=== PATIENT | female | born 1990 | race African-American/Black ===

== ENCOUNTER 2021-06-24 11:24 | Outpatient (REF) | payer BC, SELFPAY ==
--- NOTE | 2021-06-24 10:45 | PAPFT_PTH ---
PATIENT: Kianna Zuniga LOC: [facility] U#:[id number] AGE/SX: 31/F ROOM: RE06/24/[address]: Giuseppe Cody NP : 1990 BED: DIS: 06/24/2021 SPEC #: [id number] RECD: 06/24/21 17:51 STATUS: LM RECyndi #: [id number] NIA: 06/24/21 10:[address]: Giuseppe oCdy DEPT: [facility] Cytology RECD BY: Stacey Yu Tissues: 1 - CX/ENDOCX FOR PAP SMEARS Procedures: PAP THIN PREP/UVM Screening HPV DNA PROBE Comments: [id number]
[2021-06-24 19:05] LABS: HCT 37.3 % (36.0-46.0); HGB 12.4 g/dL (11.2-15.7); MCH 26.4 pg (27.0-33.0); MCHC 33.2 % (32.0-36.0); MCV 79.5 fL (80-95); Platelet Count 281 10^3/uL (130-400); RBC 4.69 10^6/uL (3.93-5.22); RDW 12.8 % (11.7-14.6); RDW-SD 36.2 fL; WBC 6.47 10^3/uL (4.4-10.8)
[2021-06-24 19:26] LABS: ALT 34 U/L (14-59); AST 15 U/L (15-37); Albumin 3.8 g/dL (3.4-5.0); Alkaline Phosphatase 60 U/L (46-116); Anion Gap 8.8 mmol/L (3-11); BUN 14 mg/dL (7-18); Bilirubin, Total 0.3 mg/dL (0.2-1.0); CO2 27.2 mmol/L (21.0-32.0); CREATININE 1.1 mg/dL (0.55-1.02); Calcium 9.4 mg/dL (8.5-10.1); Calculated LDL 101 mg/dL (<100); Chloride 103 mmol/L (98-107); Cholesterol 175 mg/dL (<200); Estimated GFR 57.93 (mL/min/1.73m2); Glucose 77 mg/dL (74-106); HDL Cholesterol 56 mg/dL (40-60); Potassium 4.3 mmol/L (3.5-5.1); Sodium 139 mmol/L (136-145); TSH 1.59 uIU/mL (0.36-3.74); Total Protein 7.7 g/dL (6.4-8.2); Triglyceride 91 mg/dL (<150)
[2021-06-24 21:25] LABS: Hemoglobin A1C 5.2 % (<5.7)
== END 2021-06-24 11:25 | disposition home or self-care (01) ==
LOC: LBN 11:24
PROVIDERS: PCP Nurse Practitioner Family; Visit Provider Nurse Practitioner Family
DX: Z13.220 Encounter for screening for lipoid disorders (principal); Z13.1 Encounter for screening for diabetes mellitus; R42 Dizziness and giddiness; Z12.4 Encounter for screening for malignant neoplasm of cervix; Z11.51 Encounter for screening for human papillomavirus (HPV)
CPT/HCPCS: 80053; 80061; 85027; 88142; 83036; 84443; 87624

== ENCOUNTER 2021-11-02 01:43 | Outpatient (CLI) | payer BC, SELFPAY ==
[2021-11-02 14:59] LABS: Glucose,1 Hr (Glucola) 135 mg/dL (80-140)
[2021-11-02 15:05] LABS: Kit/Specimen SENT
[2021-11-02 15:07] LABS: Abs Immature Grans 0.02 10^3/uL (0.0-0.06); Absolute Basophil Count 0.01 10^3/uL (0.0-0.2); Absolute Eosinophil Count 0.21 10^3/uL (0.0-0.7); Absolute Lymphocyte Count 1.26 10^3/uL (1.2-3.4); Absolute Monocyte Count 0.54 10^3/uL (0.1-0.8); Absolute Neutrophil Count 4.76 10^3/uL (1.2-6.7); Basophils % 0.1; Eosinophils % 3.1; HGB 11.9 g/dL (11.2-15.7); Immature Grans % 0.3; Lymphocytes % 18.5; MCH 27.3 pg (27.0-33.0); MCV 80.3 fL (80-95); MPV 10.8 fL (8.0-11.0); Monocytes % 7.9; Neutrophils % 70.1; Nucleated RBC 0 %; Platelet Count 229 10^3/uL (130-400); RBC 4.36 10^6/uL (3.93-5.22); RDW 12.7 % (11.7-14.6); RDW-SD 36.6 fL
[2021-11-02 17:04] LABS: *AMPHETAMINES SCREEN URINE Negative (Negative); *BARBITURATES SCREEN URINE Negative (Negative); *BENZODIAZEPINES SCREEN URINE Negative (Negative); Cannabinoids THC Negative (Negative); Cocaine Screen,Urine Negative (Negative); METHADONE URINE SCREEN Negative (Negative); OPIATES URINE SCREEN Negative (Negative)
[2021-11-02 17:05] LABS: Tricyclic Antidepressants Negative (Negative)
[2021-11-04 09:36] LABS: Hepatitis B Surface Ag Negative (Negative)
[2021-11-04 10:08] LABS: HIV-1/2 Ag & Ab Screen Negative (Negative)
[2021-11-04 10:25] LABS: Hepatitis C Ab w Rflx HCV PCR Negative (Negative)
[2021-11-04 11:34] LABS: Varicella IgG Antibody Positive (See Note)
[2021-11-04 11:41] LABS: Rubella IgG Ab (UVM) Positive (See Note)
[2021-11-04 15:26] LABS: Chlamydia Result Negative (Negative); GC Result Negative (Negative)
[2021-11-06 14:55] LABS: Syphilis IgG w/Reflex Nonreactive (Nonreactive)
[2021-11-08 17:57] LABS: Result Summary NEGATIVE; Specimen WB Whole Blood
[2021-11-10 00:49] LABS: Specimen WB Whole Blood
[2021-11-10 10:31] LABS: Buprenorphine Negative ng/mL (Cutoff: 5.0); Norbuprenorphine Negative ng/mL (Cutoff: 2.5)
== END 2021-11-02 01:44 | disposition home or self-care (01) ==
PROVIDERS: PCP Nurse Practitioner Family; Visit Provider Advanced Practice Midwife
DX: Z34.91 Encounter for supervision of normal pregnancy, unspecified, first trimester (principal)
CPT/HCPCS: 36415; 80307; 81329; 82950; 86787; 86803; 86850; 86900; 86901; 87340; 87389; 87491; 87591; 81220; 85025; 86762; 86780; 87086

== ENCOUNTER 2021-11-10 02:26 | Outpatient (CLI) | payer BC, SELFPAY ==
[2021-11-10 10:17] LABS: Glucose 1 Hour 136 mg/dL
[2021-11-10 12:19] LABS: Glucose 3 Hour 90 mg/dL
== END 2021-11-10 02:27 | disposition home or self-care (01) ==
LOC: LBO 02:26
PROVIDERS: PCP Nurse Practitioner Family; Visit Provider Advanced Practice Midwife
DX: R73.09 Other abnormal glucose (principal)
CPT/HCPCS: 36415; 82951

== ENCOUNTER 2022-02-10 01:23 | Outpatient (CLI) | payer BC, SELFPAY ==
[2022-02-10 10:04] LABS: HCT 31.9 % (36.0-46.0); HGB 11.4 g/dL (11.2-15.7); MCH 28.6 pg (27.0-33.0); MCHC 35.7 % (32.0-36.0); MCV 80 fL (80-95); MPV 9.9 fL (8.0-11.0); Platelet Count 183 10^3/uL (130-400); RBC 3.99 10^6/uL (3.93-5.22); RDW 12.8 % (11.7-14.6); RDW-SD 36.6 fL; WBC 7.69 10^3/uL (4.4-10.8)
[2022-02-10 10:19] LABS: Glucose 1 Hour 115 mg/dL
[2022-02-10 12:28] LABS: Glucose 3 Hour 99 mg/dL
== END 2022-02-10 01:24 | disposition home or self-care (01) ==
PROVIDERS: Advanced Practice Midwife; PCP Nurse Practitioner Family; Visit Provider Advanced Practice Midwife
DX: Z34.93 Encounter for supervision of normal pregnancy, unspecified, third trimester (principal); Z3A.28 28 weeks gestation of pregnancy
CPT/HCPCS: 36415; 85027; 82951

== ENCOUNTER 2022-04-07 15:38 | Outpatient (REF) | payer BC, SELFPAY | END 2022-04-07 15:39 | disposition home or self-care (01) | LOC: LBN 15:38 | PROVIDERS: PCP Nurse Practitioner Family; Visit Provider Advanced Practice Midwife | DX: Z34.93 Encounter for supervision of normal pregnancy, unspecified, third trimester (principal); Z3A.36 36 weeks gestation of pregnancy; Z36.85 Encounter for antenatal screening for Streptococcus B | CPT/HCPCS: 87081 ==

== ENCOUNTER 2022-05-10 20:40 | Inpatient (IN) | payer BC, SELFPAY ==
[2022-05-10] VITALS (13 sets, daily range): BP systolic 140–170; BP diastolic 80–96; PULSE 72–106
--- NOTE | 2022-05-10 22:17 | HPE_ITS ---
Date of service: 05/10/22 Time of Service: 22:17 Assessment and Plan Assessment and plan (1) Uterine contractions: Status: Acute Assessment and plan: A: 32 yo G1 @ 41 wks Spontaneous onset of labor GBS+, no PCN allergy Category 1 tracing, intact membranes Increased risk for SD d/t BMI, postdates and primiparous status Increased risk for PPH d/t gHTN, new onset P: Admit to BC, T&S, CBC, CMP, urine prot/creat Dr. Uribe notified of pt status and severe range BP Initiate IV access, begin PCN prophylaxis IVP labetalol 10 mg now, recheck BP per severe range BP procotol (2) 41 weeks gestation of : Status: Acute (3) Group B Streptococcus carrier state affecting : Status: Acute Assessment and plan: Begin GBS prophylaxis with PCN protocol (4) Gestational hypertension affecting first : Status: Acute Assessment and plan: Severe range pressures upon admission x3 Dr. Uribe notified (inhouse) CMP, urine prot/creat ratio ordered Labetalol 10 mg IVP now, follow severe range pressure procedures Pt denies PATE, scotomata or RUQ pain OB-HPI Labor/Delivery History of Present Illness Reason for Visit: Term Labor Chief Complaint: Uterine Contractions (contractions have been going all day, became regular & painful this evening and spotting noted. No ROM, nauseated but no vomiting.). THIEN Calculator Estimated Delivery Date Method Current WG Current Estimate 05/03/22 LMP (Certain) 41w 0d Other Estimates 05/03/22 Ultrasound #1 41w 0d History of Present Expected Delivery Route/Plan - CNM FOB - Shaun Brock (has 13 yo from prev. marriage) BG Marylin GBS POSITIVE: PCN prophylaxis in labor Specific Issues/Plan 1. Patient and are COVID vaccinated 2. Increased risk for pre-eclampsia, will begin low dose ASA therapy 2a. At 18 wk appt: pt has not started ASA, risks x3 discussed, pt encouraged to consider beginning 3. Panorama, SMA/CF drawn at initial OB. CF & SMA negative; cfDNA low prob x5 female 4. 1 hour glucola at initial OB for BMI 31, result 135; 3 hr GTT nml: [id number]. 4a. Plan 3 hr GTT at 28 wks: all 4 levels are nml 6/10/22 5. Referral to [facility] audiology due to persistent left ear tinnitis 5a. Did not go, prefers to go after the baby is born 6. Right hip pain, doing yoga, offered PT but declines at this time - 04/07- symptoms improved. 7. Pt knows she has hgb, sickle cell trait carrier. 8. Declines second drug screen due to cost - declines any drug use. Assessment: History Reviewed & Current Review of Systems All systems reviewed & are unremarkable except as noted in HPI and below Constitutional Constitutional: Reports as per HPI and Reports poor appetite PFSH All Active Problems (Updated 05/10/22 @ 22:33 by Kalina Sears) Gestational hypertension affecting first (Acute) Group B Streptococcus carrier state affecting (Acute) 41 weeks gestation of (Acute) Uterine contractions (Acute) (sickle cell trait) (Acute) Clicking tinnitus of left ear (Acute) (Acute) Medical History (Updated 05/10/22 @ 22:33 by Kalina Sears) Anemia Dizzy spells Elevated glucose level Family History Mother Hypertension Breast cancer diagnosed around age 57, had radiation and lumpectomy, in recurrence Father No problems noted. Sister No problems noted. Brother No problems noted. Maternal Grandmother No problems noted. Paternal Grandmother Hypertension Social History Smoking/Tobacco Use Status: Never Second Hand Exposure: Yes Smoking risk assessment performed?: Yes Alcohol Intake: current Alcohol Intake frequency: a few times a month Alcohol type: wine Drug use: Never Substance use type: does not use Caregiver/Support person: No Household members: significant other Housing: house Pets and animals: Yes Pets and animals: dog(s) Sexually active: Yes Do you think of yourself as: straight/heterosexual Current gender identity: female What is your relationship status?: living with partner How often do you talk on the phone with friends or family?: three or more times per week How often do you get together with friends or relatives?: once per week Do you belong to any clubs or organized social groups?: no Panel score (0-1 are the most socially isolated patients): 2 What type of physical activity do you participate in: yoga Duration: < 15 minutes/day Frequency: 1-2 times per week Macrina/Moravian: No preference Seatbelt use: always Drive intox or ride w/intox laundry route driver: No History History 1 Para 0 Hx # Term Pregnancies 0 Multiple births 0 Hx # Pregnancies 0 Ectopic pregnancies 0 AB induced 0 Hx Number of Living Children 0 AB spontaneous 0 Meds Allergies and Home Medications Allergies Allergy/AdvReac Type Severity Reaction Status Date / Time latex AdvReac Intermediate skin Verified 05/05/22 12:18 irritation Home Medications Medication Instructions Recorded Confirmed Type prenat.vits,luke,fiw-lybv-xseru 1 tab PO DAILY 09/23/21 05/05/22 History flu vacc [id number] 6mos up(PF) 60 0.5 ml IM ONCE #0.5 mL 11/02/21 Clinic mcg(15 mcgx4)/0.5 mL IM syringe aspirin 81 mg tablet,delayed 81 mg PO DAILY 12/30/21 05/05/22 History release (Adult Low Dose Aspirin) diphenhydramine HCl 25 mg capsule 25 mg PO QHS PRN 03/24/22 05/05/22 History (Benadryl) Exam Physical Exam Vital signs: Pulse BP 86 168/92 H 05/10/22 22:02 05/10/22 22:02 Vital Signs Reviewed: Yes Narrative: Hypertension noted Constitutional Constitutional: moderate distress, average body habitus and cooperative Detailed Labor and Delivery Exam Dilation: 1 Effacement (%): 100 station: -2 Cervix position: anterior Consistency: soft PERDOMO Score(Cervical Ripeness Score): 9 Amniotic Membrane Status: Intact (large forebag palpable) Fetus A Heart Rate Baseline: 145 Monitor Accelerations: 15 X 15 Monitor Decelerations: None Variability: Moderate (6-25 BPM) Categories: Category I Est. Weight: 7 lb 7.931 oz Est. Weight: 3400 gms HEENT Exam HEENT Exam: Normal Neck Exam Neck Exam: Normal Chest/Brest/Axilla Exam Chest Exam: Normal Breast Exam Breast Exam: Not Done Respiratory Exam Respiratory Exam: Normal Cardiovascular Exam Cardiovascular Exam: Normal Abdominal Exam Abdominal Exam: Normal (Gravid, S=D) Rectal Exam Rectal Exam: Normal Exam Exam: Normal Extremities Exam Extremities Exam: Normal Back/Spine/Pelvis Exam Back Exam: Normal Pelvis Adequate: Yes Skin Exam Skin Exam: Normal Neurological Exam Neurological Exam: Normal Psychiatric Exam Psychiatric Exam: Normal Results Results Group Beta Strep: Positive Blood Type: O+ Rubella Status: Immune Varicella Immunity: Immune Risk Assessment Risk for Shoulder Dystocia Historical/Initial OB: POSITIVE FOR: Pre- BMI>30; NEGATIVE FOR: Pelvic Abnormality, Previous Shoulder Dystocia or Previous Macrosomia 40 Weeks: POSTIVE FOR: Post Dates; NEGATIVE FOR: EFW> 4500 gms or Maternal Weight Gain >40lb Increased Risk?: Yes Date/Initial: 11/02/21: LEROY Delivery Plan @ 36wks: spont labor, Delivery Plan @ 40 wks: Spont labor, Risk for Pre-Eclampsia Daily Dose ASA Indicated: Yes Date Initiated/Initials: indicated 11/02/21: Leroy Yes, if one or more: NEGATIVE FOR: Hx Pre-E/Gest HTN, Chronic HTN, Multiple Gestation, Pre-gestational DM, Renal Disease, Systemic Lupus or APA Syndrome Yes, if 2 or more: POSITIVE FOR: Nulliparity, BMI>30 and ethinicty; NEGATIVE FOR: Age>= 35 yrs, >10yr btwn pregnancies, Mother/Sister w/ Pre-E or Previous IUGR Risk for Post- Hemorrhage Initial: NEGATIVE FOR: Multiple Gestation, Previous PPH, Known Clotting Deficiency, Grand Multiparity or Anticoagulation At Risk?: No Counseled re: Active Management: Yes Risks Reviewed Risks Reviewed Upon Admission: Yes
[2022-05-10 22:26] LABS: Source Nasal/Nares
[2022-05-10 22:27] LABS: HCT 36.1 % (36.0-46.0); HGB 12.2 g/dL (11.2-15.7); MCH 27.6 pg (27.0-33.0); MCHC 33.8 % (32.0-36.0); MCV 82 fL (80-95); MPV 10.5 fL (8.0-11.0); Platelet Count 209 10^3/uL (130-400); RBC 4.42 10^6/uL (3.93-5.22); RDW 12.8 % (11.7-14.6); RDW-SD 38.2 fL; WBC 8.51 10^3/uL (4.4-10.8)
[2022-05-10] MEDS: Penicillin G POT. 5,000,000 UNITS in Normal Saline 100 ML 200 UNITS IVPB (22:41)
[2022-05-10 22:42] LABS: ALT 25 U/L (14-59); AST 18 U/L (15-37); Albumin 2.6 g/dL (3.4-5.0); Alkaline Phosphatase 253 U/L (46-116); Anion Gap 8.4 mmol/L (3-11); BUN 9 mg/dL (7-18); Bilirubin, Total 0.3 mg/dL (0.2-1.0); CO2 24.6 mmol/L (21.0-32.0); CREATININE 0.9 mg/dL (0.55-1.02); Calcium 8.9 mg/dL (8.5-10.1); Chloride 103 mmol/L (98-107); Estimated GFR 87.11 (mL/min/1.73m2); Glucose 82 mg/dL (74-106); LDH 180 U/L (81-234); Potassium 3.9 mmol/L (3.5-5.1); Sodium 136 mmol/L (136-145); Total Protein 7.2 g/dL (6.4-8.2); Uric Acid 6.7 mg/dL (2.6-6.0)
[2022-05-10] MEDS: Labetalol 100 MG/20 ML VIAL 10 MG IVP ×2 (22:42→23:12)
[2022-05-10 23:09] LABS: COVID-19 PCR Negative (Negative)
[2022-05-11] VITALS (125 sets, daily range): BP systolic 93–179; BP diastolic 53–110; PULSE 0–103; RESP 12–98; TEMP 36.5–36.9; O2SAT 92–100; BMI 33.0
[2022-05-11] MEDS: Labetalol 100 MG/20 ML VIAL 20 MG IVP ×2 (00:04→00:52)
--- NOTE | 2022-05-11 00:05 | W.PM.OBNL1 ---
Date of service: 05/11/22 Time of Service: 00:05 Informed Consent Informed Consent: Regional Anesthesia and Risk,Benefits,Alternatives Discussed Pelvic Exam Dilation: 2 Effacement (%): 100 station: -1 Cervix Position: mid Contractions Monitor Mode: External Contraction Frequency(min): q2-4 Intensity: Mild/Moderate Fetus A Monitor: External (US) Heart Rate Baseline: 140 Variability: Moderate (6-25 BPM) Categories: Category I Accelerations: Present Decelerations: None Amniotic Membrane Status: Intact Assessment and Plan Assessment and plan (1) Pre-eclampsia affecting childbirth: Status: Acute Assessment and plan: A: Uric Acid elevated at 6.7, serum creatinine elevated at 0.9 urine prot/creat ratio pending LFT's, LDH and plts WNL BP responding to serial doses of IVP labetalol Labor progressing to 2/100% vtx -2, BBOW P: Pt 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 Uribe inhouse and aware of BP status Will repeat Labetalol at 20 mg IVP Consider AROM when pt more comfortable Anticipate Objective Abnormal lab results 05/10/22 Range/Units 22:15 Uric Acid 6.7 H (2.6-6.0) mg/dL Alkaline Phosphatase 253 H (46-116) U/L Albumin 2.6 L (3.4-5.0) g/dL Pulse BP 86 154/92 H 05/11/22 00:01 05/11/22 00:01 Laboratory Results WBC 8.51 10^3/uL (4.4-10.8) 05/10/22 22:15 RBC 4.42 10^6/uL (3.93-5.22) 05/10/22 22:15 Hgb 12.2 g/dL (11.2-15.7) 05/10/22 22:15 Hct 36.1 % (36.0-46.0) 05/10/22 22:15 MCV 82 fL (80-95) 05/10/22 22:15 MCH 27.6 pg (27.0-33.0) 05/10/22 22:15 MCHC 33.8 % (32.0-36.0) 05/10/22 22:15 RDW 12.8 % (11.7-14.6) 05/10/22 22:15 Plt Count 209 10^3/uL (130-400) 05/10/22 22:15 MPV 10.5 fL (8.0-11.0) 05/10/22 22:15 Sodium 136 mmol/L (136-145) 05/10/22 22:15 Potassium 3.9 mmol/L (3.5-5.1) 05/10/22 22:15 Chloride 103 mmol/L (98-107) 05/10/22 22:15 Carbon Dioxide 24.6 mmol/L (21.0-32.0) 05/10/22 22:15 Anion Gap 8.4 mmol/L (3-11) 05/10/22 22:15 BUN 9 mg/dL (7-18) 05/10/22 22:15 Creatinine 0.9 mg/dL (0.55-1.02) 05/10/22 22:15 Est GFR (CKD-EPI 2020) 87.11 (mL/min/1.73m2) 05/10/22 22:15 Glucose 82 mg/dL (74-106) 05/10/22 22:15 Uric Acid 6.7 mg/dL (2.6-6.0) H 05/10/22 22:15 Calcium 8.9 mg/dL (8.5-10.1) 05/10/22 22:15 Total Bilirubin 0.3 mg/dL (0.2-1.0) 05/10/22 22:15 AST 18 U/L (15-37) 05/10/22 22:15 ALT 25 U/L (14-59) 05/10/22 22:15 Alkaline Phosphatase 253 U/L (46-116) H 05/10/22 22:15 Lactate Dehydrogenase 180 U/L (81-234) 05/10/22 22:15 Total Protein 7.2 g/dL (6.4-8.2) 05/10/22 22:15 Albumin 2.6 g/dL (3.4-5.0) L 05/10/22 22:15 COVID-19 Source Nasal/Nares 05/10/22 22:15 SARS-CoV-2 (PCR) Negative (Negative) 05/10/22 22:15 Patient ABO/Rh O Positive 05/10/22 22:15 Antibody Screen NEGATIVE 05/10/22 22:15 Vital Signs Reviewed: Yes Notable Details: Severe range pressures down to mild range after 2 doses IVP Labetalol 10 mg Subjective Interval history since last seen: Emesis x1, pt feeling increasing pelvic and rectal pressure, desires epidural anesthesia, using nitrous but dissatisfied with effects. Interventions Pain Management Interventions: Epidural Epidural Placed by:: Nina Santana and Nitrous Oxide , pt states nitrous is not very helpful . Results Hemoglobin/Hematocrit: Hgb 12.2 g/dL (11.2-15.7) 05/10/22 22:15 Hct 36.1 % (36.0-46.0) 05/10/22 22:15 Abnormal Lab Findings: Abnormal Labs 05/10/22 22:15 Uric Acid 6.7 H Alkaline Phosphatase 253 H Albumin 2.6 L
--- NOTE | 2022-05-11 00:05 | W.ANESPRE ---
General Info Date of Service Date Performed: 05/11/22 Height: 5 ft Weight: 76.657 kg Body Mass Index (BMI): 33.0 Meds Allergies and Home Medications Allergies Allergy/AdvReac Type Severity Reaction Status Date / Time latex AdvReac Intermediate skin Verified 05/10/22 22:58 irritation Home Medication Medication Instructions Recorded prenat.vits,luke,afn-zvkq-lfuke 1 tab PO DAILY 09/23/21 aspirin 81 mg tablet,delayed 81 mg PO DAILY 12/30/21 release (Adult Low Dose Aspirin) diphenhydramine HCl 25 mg capsule 25 mg PO QHS PRN 03/24/22 (Benadryl) Current Visit Medications: Current Medications Generic Name Dose Route Start Last Admin Trade Name Freq PRN Reason Stop Dose Admin Sodium Chloride 500 mls @ 0 mls/hr 05/10/22 21:39 Saline 500ml Bag IV PRN PRN As Directed Penicillin G Potassium 3,000, 50 mls @ 100 mls/hr 05/11/22 02:00 000 units/ Sodium Chloride IVPB Q4H [facility] IV Miscellaneous Supplies 1 each 05/10/22 21:45 Iv Access IV DIRECTED BONNIE Labetalol HCl 10 mg 05/10/22 22:45 05/10/22 23:12 Labetalol 100 Mg/20 Ml Vial IVP 10 mg NOW [facility] Administration Labetalol HCl 10 mg 05/10/22 23:30 Labetalol 100 Mg/20 Ml Vial IVP NOW BONNIE Labetalol HCl 20 mg 05/11/22 00:15 Labetalol 100 Mg/20 Ml Vial IVP NOW [facility] Sodium Chloride 0 ml 05/10/22 21:39 Normal Saline Flush 10 Ml Syr IVP PRN PRN PFSH Active Problems Active Problems: Problem Status Onset Code Gestational hypertension affecting first O13.9 Group B Streptococcus carrier state affecting O99.820 41 weeks gestation of Z3A.41 Uterine contractions O47.9 (sickle cell trait) D57.3 Clicking tinnitus of left ear H93.12 Z34.90 Medical History Medical History (Updated 05/11/22 @ 00:09 by Kalina Sears) Anemia Dizzy spells Elevated glucose level Tobacco Smoking/Tobacco Use Status: Never Passive smoking exposure: Yes Second hand exposure: Yes Alcohol Alcohol Intake: current Alcohol intake frequency: a few times a month Alcohol type: wine Substance Use Substance use: Never Substance use type: does not use Prental History History 1 Para 0 Hx # Term Pregnancies 0 Multiple births 0 Hx # Pregnancies 0 Ectopic pregnancies 0 AB induced 0 Hx Number of Living Children 0 AB spontaneous 0 Vital Signs and Lab Results Vital Signs Most Recent Vital Signs in EMR: Most Recent Vital Signs Pulse BP 86 154/92 H 05/11/22 00:01 05/11/22 00:01 Lab Results Result Diagrams: 05/10/22 22:15 05/10/22 22:15 Blood Type / Crossmatch: Patient ABO/Rh O Positive 05/10/22 Antibody Screen NEGATIVE 05/10/22 Complete Blood Count: White Blood Count 8.51 10^3/uL (4.4-10.8) 05/10/22 22:15 Red Blood Count 4.42 10^6/uL (3.93-5.22) 05/10/22 22:15 Hemoglobin 12.2 g/dL (11.2-15.7) 05/10/22 22:15 Hematocrit 36.1 % (36.0-46.0) 05/10/22 22:15 Platelet Count 209 10^3/uL (130-400) 05/10/22 22:15 Complete Metabolic Panel: Sodium Level 136 mmol/L (136-145) 05/10/22 22:15 Potassium Level 3.9 mmol/L (3.5-5.1) 05/10/22 22:15 Chloride Level 103 mmol/L (98-107) 05/10/22 22:15 Carbon Dioxide Level 24.6 mmol/L (21.0-32.0) 05/10/22 22:15 Blood Urea Nitrogen 9 mg/dL (7-18) 05/10/22 22:15 Creatinine 0.9 mg/dL (0.55-1.02) 05/10/22 22:15 Calcium Level 8.9 mg/dL (8.5-10.1) 05/10/22 22:15 Albumin 2.6 g/dL (3.4-5.0) L 05/10/22 22:15 Glucose Level 82 mg/dL (74-106) 05/10/22 22:15 Liver Function Panel: Alanine Aminotransferase (ALT/SGPT) 25 U/L (14-59) 05/10/22 22:15 Aspartate Amino Transf (AST/SGOT) 18 U/L (15-37) 05/10/22 22:15 Coagulation Panel: No Data to Display Cardiac Panel: No Data to Display Arterial Blood Gas: No Data to Display Venous Blood Gas: No Data to Display Pancreas Panel: No Data to Display Thyroid Panel: No Data to Display Infectious Disease: Coronavirus (COVID-19)(PCR) Negative (Negative) 05/10/22 22:15 Coronavirus 2019 Source Nasal/Nares 05/10/22 22:15 Blood Cultures: No Data to Display Toxicology Panel: No Data to Display Panel: No Data to Display Anesthesia Assessment and Plan Anesthesia History Personal History: No History of Anesthesia Complications Family History: No Family History of Anesthesia Complications Exercise Tolerance Exercise Tolerance: Metabolic Equivalents>4 Pertinent Negatives Pertinent Negatives: No Major Cardiovascular Symptoms or Complaints and No Major Pulmonary Symptoms or Complaints Cardiac & Pulmonary Exam Cardiac Exam: Normal S1/S2 Heart Sounds Pulmonary Exam: Clear Bilateral Breath Sounds Implantable Cardiac Device Does patient have a Pacemaker or an ICD?: No Airway Exam Known Difficult Airway: No Mallampati Class: 3 Mouth Opening: Normal (> 3cm) Thyromental Distance: Greater than 3 cm Neck Range of Motion: Full ROM Neck Circumference: Normal Teeth Condition: Normal Dentition ASA Classification ASA Score: ASA 2 Emergency Case?: No NPO Status NPO Status: Full Stomach Status Status: Confirmed Anesthesia Plan Resuscitation Status: Full Code Anesthesia Technique: Epidural Anesthesia Airway Planned: Natural Airway Monitors Used: Standard Monitors
[2022-05-11 00:06] LABS: COMMENT (LAB VIEW ONLY) 66.63 mg/dL; PROTEIN 45.6 mg/dL; Prot/Crea Ur Ratio 0.68
--- NOTE | 2022-05-11 00:45 | ANES.NEUR_ITS ---
Epidural/Spinal Catheter Date Performed: 05/11/22 Procedure Start: 00:14 Procedure Stop: 00:40 Requesting Provider: Kalina Sears Procedure Location: Operating Room Reason Performed: Labor Epidural Standard Monitors Applied: Blood Pressure, SpO2 and See EMR for corresponding vital signs Patient Position: Sitting Sedation Given (Indicate Dose Given): No Sedation given Patient Mental Status: Awake Sterility: Hand Hygiene, Surgical Cap, Surgical Mask, Sterile Gloves, Sterile Drape/Sheet and Chlorhexidine Procedure Location: L3-L4 Interspace Epidural Needle: Tuohy 18 Gauge Needle Length: 3.5 Inch Needle Approach: Midline Epidural Procedure: Skin Prepped, Sterile Drape Placed, 1% Lidocaine to skin and subcutaneous tissue with 25G needle, ZAC to Saline Used, Epidural Catheter Placed and Tuohy Needle Removed Catheter Placed?: Catheter Placed Test Dose (Indicate Dose Given): 3ml 1.5% Lidocaine with 1:200K Epinephrine Given Loss of Resistance Depth (cm): 7 Cathet er depth at skin (cm): 14 Dressing: [place]orbaview Dressing Placed, Tegaderm Applied and Mastisol Used Epidural Provider Bolus (Indicate Dose Given): Total bolus dose given in 3-5 ml divided doses and Total Ropivacaine 0.1% with Fentanyl 2mcg/ml Given from pump. (ml) Dose:: 2mL Additives (Indicate Dose Given ): None Infusion Medication: Medication Infusion Began Medication Infusion: Ropivacaine 0.1% with Fentanyl 2mcg/ml Maintenance Infusion Rate (ml/hour): 10 PCEA Bolus Dose (ml): 5 Block Level: N/A Paresthesia: Right Paresthesia Duration: Transient Ultrasound: Not Used Number of Attempts (See previous attempts in note section): 2 (2nd attempt, moved left after right paresthesia) Procedure Tolerated: No Complications Procedure Outcome: Successful Performed By: Nina Santana
--- NOTE | 2022-05-11 00:53 | W.PM.OBNL1 ---
Date of service: 05/11/22 Time of Service: 00:53 Informed Consent Informed Consent: Regional Anesthesia and Risk,Benefits,Alternatives Discussed Pelvic Exam Dilation: 2 Effacement (%): 100 station: 0 Contractions Monitor Mode: External Contraction Frequency(min): q2-4 Intensity: Moderate Fetus A Monitor: External (US) Heart Rate Baseline: 140 Presentation: Cephalic Variability: Moderate (6-25 BPM) Categories: Category I Accelerations: Present Decelerations: None Amniotic Membrane Status: Ruptured Rupture Method: Artifical Amniotic Fluid: Meconium Amount: small amt Date of Membrane Rupture: 05/11/22 Time of Membrane Rupture: 00:54 Assessment and Plan Assessment and plan (1) Pre-eclampsia affecting childbirth: Status: Acute Assessment and plan: A: epidural placed severe range pressures continue 160's over 100 urine prot/creat ratio @ 0.68 Category 1 tracing continues cvx @ 2/100%, descent to [address] Uribe in room to speak with pt P: 4th dose of labetalol IVP, [address] Uribe Will begin Magnesium infusion for neuro prophylaxis AROM performed for small amt dark meconium fluid Strict I&O with gaviria catheter placed Medical management for severe range pressures in setting of pre-eclampsia Objective Vital Signs Reviewed: Yes Subjective Interval history since last seen: Epidural anesthesia placed to good effect, pt beginning to doze.
--- NOTE | 2022-05-11 01:02 | OBCE_ITS ---
Date of service: 05/11/22 Time of Service: 01:02 Assessment and Plan Assessment and plan (1) 41 weeks gestation of : Status: Acute Assessment and plan: Early active labor with regular contractions every 2-3 minutes (2) Group B Streptococcus carrier state affecting : Status: Acute Assessment and plan: S/P GBS prophylaxis (3) Pre-eclampsia affecting childbirth: Status: Acute Assessment and plan: Elevated BP in the severe range s/p Labetalol, 10 mg, 10 mg, 20 mg, 20 mg, now with MGSO4 for seizure prophylaxis with accurate I&O, mag levels q 6 hours. Epidural for pain control. Expectant management with anticipation of History of Present Illness History of Present Illness Chief Complaint: Onset of labor at 41 1/7 with elevated BP in the severe range Consults Consult date: 05/11/22 Requesting physician: Kalina Sears Review of Systems Narrative: NO headache, visual channges, epigastric pain. Some nausea with vomiting Constitutional Constitutional: Reports as per HPI, Denies fatigue, Denies headache(s) and Denies poor appetite Eyes Eyes: Reports system reviewed and no additional complaints, except as documented, Denies blind spots, Denies blurry vision, Denies change in vision and Denies diplopia ENT Ears, Nose, Mouth, and Throat: Reports system reviewed and no additional complaints, except as documented, Denies dizziness and Denies headache(s) Cardiovascular Cardiovascular: Reports as per HPI, Denies chest pain, Denies syncope, Denies irregular heart rhythm and Denies dyspnea Respiratory Respiratory: Denies chest congestion, Denies cough and Denies dyspnea Gastrointestinal Gastrointestinal: Reports other (contractions, regular every 3-4 minutes) Musculoskeletal Musculoskeletal: Reports system reviewed and no additional complaints, except as documented Neurologic Neurologic: Denies abnormal movements, Denies confusion, Denies dizziness, Denies syncope, Denies headache(s) and Denies memory loss Psychiatric Psychiatric: Denies confusion and Denies memory loss Endocrine Endocrine: Denies fatigue PFSH All Active Problems (Updated 05/11/22 @ 00:55 by Kalina Sears) Pre-eclampsia affecting childbirth (Acute) Group B Streptococcus carrier state affecting (Acute) 41 weeks gestation of (Acute) Uterine contractions (Acute) (sickle cell trait) (Acute) Clicking tinnitus of left ear (Acute) (Acute) Medical History (Updated 09/08/22 @ 00:55 by Kalina Sears) Anemia Dizzy spells Elevated glucose level Gestational hypertension affecting first Family History Mother Hypertension Breast cancer diagnosed around age 57, had radiation and lumpectomy, in recurrence Father No problems noted. Sister No problems noted. Brother No problems noted. Maternal Grandmother No problems noted. Paternal Grandmother Hypertension Social History Smoking/Tobacco Use Status: Never Second Hand Exposure: Yes Smoking risk assessment performed?: Yes Alcohol Intake: current Alcohol Intake frequency: a few times a month Alcohol type: wine Drug use: Never Substance use type: does not use Caregiver/Support person: No Household members: significant other Housing: house Pets and animals: Yes Pets and animals: dog(s) Sexually active: Yes Do you think of yourself as: straight/heterosexual Current gender identity: female What is your relationship status?: living with partner How often do you talk on the phone with friends or family?: three or more times per week How often do you get together with friends or relatives?: once per week Do you belong to any clubs or organized social groups?: no Panel score (0-1 are the most socially isolated patients): 2 What type of physical activity do you participate in: yoga Duration: < 15 minutes/day Frequency: 1-2 times per week Macrina/Yarsani: No preference Seatbelt use: always Drive 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 Do you feel safe at home: Yes Do you feel safe in your relationship?: Yes History History 1 Para 0 Hx # Term Pregnancies 0 Multiple births 0 Hx # Pregnancies 0 Ectopic pregnancies 0 AB induced 0 Hx Number of Living Children 0 AB spontaneous 0 Exam Const General: cooperative, healthy appearing, comfortable (moderate discomfort with contractions) and no acute distress Nutritional Appearance: average body habitus HENMT Head: normal to inspection Eyes General: appearance normal, both eyes and all related structures Neck Neck: normal visual inspection and supple Thyroid: thyroid normal Resp Effort & Inspection: normal respiratory effort, no audible wheezes and no cough Cardio Rate: regular rate Rhythm: regular rhythm Heart Sounds: S1 normal, S2 normal and no murmurs Manual OB Exam: dilated 2, effaced fully and station (AROM per Bonnie Sears, Moderate meconium) 0 Skin General skin exam: no rashes or lesions noted Neuro DTR's: Rt Patellar: 2+, Lt Patellar: 2+, Rt Ankle: 2+ and Lt Ankle: 2+ Extrem General: no clubbing, cyanosis or edema Results Last Vital Signs Pulse 89 05/11/22 01:02 BP 148/96 H 05/11/22 00:56 Pulse Ox 92 05/11/22 01:02 Labs Result diagrams: 05/10/22 22:15 05/10/22 22:15 Labs: Laboratory Results - last 24 hr 05/10/22 05/10/22 05/10/22 22:15 22:15 22:15 WBC 8.51 RBC 4.42 Hgb 12.2 Hct 36.1 MCV 82 MCH 27.6 MCHC 33.8 RDW 12.8 Plt Count 209 MPV 10.5 Sodium Potassium Chloride Carbon Dioxide Anion Gap BUN Creatinine Est GFR (CKD-EPI 2020) Glucose Uric Acid Calcium Total Bilirubin AST ALT Alkaline Phosphatase Lactate Dehydrogenase Total Protein Albumin Ur Random Creatinine U Random Total Protein U [place] Prot/Creat Ratio COVID-19 Source Nasal/Nares SARS-CoV-2 (PCR) Negative Patient ABO/Rh O Positive Antibody Screen NEGATIVE 05/10/22 05/10/22 22:15 23:30 WBC RBC Hgb Hct MCV MCH MCHC RDW Plt Count MPV Sodium 136 Potassium 3.9 Chloride 103 Carbon Dioxide 24.6 Anion Gap 8.4 BUN 9 Creatinine 0.9 Est GFR (CKD-EPI 2020) 87.11 Glucose 82 Uric Acid 6.7 H Calcium 8.9 Total Bilirubin 0.3 AST 18 ALT 25 Alkaline Phosphatase 253 H Lactate Dehydrogenase 180 Total Protein 7.2 Albumin 2.6 L Ur Random Creatinine 66.63 U Random Total Protein 45.6 U [place] Prot/Creat Ratio 0.68 COVID-19 Source SARS-CoV-2 (PCR) Patient ABO/Rh Antibody Screen
[2022-05-11] MEDS: MAGNESIUM SULFATE 20 GM/500 ML BAG IV ×2 (01:16→20:06)
[2022-05-11] MEDS: Penicillin G POT. 3,000,000 UNITS in Normal Saline 50 ML 100 UNITS IVPB ×2 (02:30→06:18)
--- NOTE | 2022-05-11 03:12 | PGE_ITS ---
Date of service: 05/11/22 Time of Service: 03:12 Informed Consent Informed Consent: Augmentation of Labor and Risk,Benefits,Alternatives Discussed Pelvic Exam Dilation: 3 Effacement (%): 100 station: 0 Contractions Monitor Mode: External Contraction Frequency(min): q4-5 Contraction Duration(sec): 60 Intensity: Mild/Moderate Fetus A Monitor: External (US) Heart Rate Baseline: 140 Variability: Moderate (6-25 BPM) Categories: Category I Decelerations: None Amniotic Membrane Status: Ruptured Assessment and Plan Assessment and plan (1) Pre-eclampsia affecting childbirth: Status: Acute Assessment and plan: A: inadequate contraction pattern since epidural placed BP's ranging 140's over 80's and stable at this time Mag infusing at 2gms/hr P: Begin pitocin augmentation 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 Uribe q6 hrs Subjective Interval history since last seen: sleeping between contractions, feels pelvic pressure and lower abd discomfort with contractions
[2022-05-11 03:28] LABS: Magnesium 5.3 mg/dL (1.8-2.4)
[2022-05-11] MEDS: Oxytocin/Normal Saline 30 UNIT/500 ML BAG 2 UNITS IV (03:30)
[2022-05-11] MEDS: Lactated Ringers 1,000 ML 125 ML IV (06:27)
[2022-05-11] MEDS: ePHEDrine 50 MG/ML VIAL IVP (06:48)
--- NOTE | 2022-05-11 06:58 | W.PM.OBNL1 ---
Date of service: 05/11/22 Time of Service: 06:58 Informed Consent Informed Consent: Augmentation of Labor and Risk,Benefits,Alternatives Discussed Pelvic Exam Dilation: 6 Effacement (%): 100 station: 0 Position: ROP Cervix Position: anterior Contractions Contraction Frequency(min): 2-5 Contraction Duration(sec): 60 Intensity: Moderate/Strong Fetus A Heart Rate Baseline: 130 Variability: Minimal (1-5 BPM) Categories: Category II FHR Rhythm: Regular Decelerations: Late and Variable Recurrence: Recurrent Amniotic Membrane Status: Ruptured Amniotic Fluid: Meconium Assessment and Plan Assessment and plan (1) Pre-eclampsia affecting childbirth: Status: Acute Assessment and plan: Currently blood pressures are stable urine output. With episodes of hypotension contractions, intolerance of labor has been noted. Patient is postdates, remote from delivery, placing meconium stained fluid. Risk benefits alternatives of section discussed with patient. we will proceed to the OR. 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 (2) Group B Streptococcus carrier state affecting : Status: Acute Assessment and plan: Status post 3 doses of antibiotic prophylaxis (3) 41 weeks gestation of : Status: Acute (4) Thick meconium stained amniotic fluid: Status: Acute (5) intolerance to labor, delivered, current hospitalization: Status: Acute Objective Abnormal lab results 05/10/22 05/11/22 Range/Units 22:15 03:05 Uric Acid 6.7 H (2.6-6.0) mg/dL Magnesium 5.3 H* (1.8-2.4) mg/dL Alkaline Phosphatase 253 H (46-116) U/L Albumin 2.6 L (3.4-5.0) g/dL Temp Pulse Resp BP Pulse Ox 97.7 F 86 98 H 127/66 100 05/11/22 05:00 05/11/22 06:55 05/11/22 05:00 05/11/22 06:52 05/11/22 06:55 Laboratory Results WBC 8.51 10^3/uL (4.4-10.8) 05/10/22 22:15 RBC 4.42 10^6/uL (3.93-5.22) 05/10/22 22:15 Hgb 12.2 g/dL (11.2-15.7) 05/10/22 22:15 Hct 36.1 % (36.0-46.0) 05/10/22 22:15 MCV 82 fL (80-95) 05/10/22 22:15 MCH 27.6 pg (27.0-33.0) 05/10/22 22:15 MCHC 33.8 % (32.0-36.0) 05/10/22 22:15 RDW 12.8 % (11.7-14.6) 05/10/22 22:15 Plt Count 209 10^3/uL (130-400) 05/10/22 22:15 MPV 10.5 fL (8.0-11.0) 05/10/22 22:15 Sodium 136 mmol/L (136-145) 05/10/22 22:15 Potassium 3.9 mmol/L (3.5-5.1) 05/10/22 22:15 Chloride 103 mmol/L (98-107) 05/10/22 22:15 Carbon Dioxide 24.6 mmol/L (21.0-32.0) 05/10/22 22:15 Anion Gap 8.4 mmol/L (3-11) 05/10/22 22:15 BUN 9 mg/dL (7-18) 05/10/22 22:15 Creatinine 0.9 mg/dL (0.55-1.02) 05/10/22 22:15 Est GFR (CKD-EPI 2020) 87.11 (mL/min/1.73m2) 05/10/22 22:15 Glucose 82 mg/dL (74-106) 05/10/22 22:15 Uric Acid 6.7 mg/dL (2.6-6.0) H 05/10/22 22:15 Calcium 8.9 mg/dL (8.5-10.1) 05/10/22 22:15 Magnesium 2.0 mg/dL (1.8-2.4) 05/11/22 22:15 Total Bilirubin 0.3 mg/dL (0.2-1.0) 05/10/22 22:15 AST 18 U/L (15-37) 05/10/22 22:15 ALT 25 U/L (14-59) 05/10/22 22:15 Alkaline Phosphatase 253 U/L (46-116) H 05/10/22 22:15 Lactate Dehydrogenase 180 U/L (81-234) 05/10/22 22:15 Total Protein 7.2 g/dL (6.4-8.2) 05/10/22 22:15 Albumin 2.6 g/dL (3.4-5.0) L 05/10/22 22:15 Ur Random Creatinine 66.63 mg/dL 05/10/22 23:30 U Random Total Protein 45.6 mg/dL 05/10/22 23:30 U [place] Prot/Creat Ratio 0.68 05/10/22 23:30 COVID-19 Source Nasal/Nares 05/10/22 22:15 SARS-CoV-2 (PCR) Negative (Negative) 05/10/22 22:15 Patient ABO/Rh O Positive 05/10/22 22:15 Antibody Screen NEGATIVE 05/10/22 22:15 Subjective Interval history since last seen: Patient seen and examined this morning. Magnesium sulfate is running. Last level was 5, decreased Mag sulfate. Pitocin was at a maximum of 7 milliunits with rounds of closely spaced contractions, and late decelerations. As of note, she did also have episodes of hypotension once her epidural was working appropriately. Pitocin was discontinued, position was changed, cervix is 6 cm. Fluid bolus of 500 cc was given, along with 5 mg of Ephedrine. Blood pressure improved, heart rate remains with decreased variability, subtle late decelerations with contractions in light of this intolerance of labor, remote from delivery, anesthesia aware, OR crew notified. Manager File notified. Risk benefits and alternatives of delivery discussed. Full informed consent obtained. We will proceed to . Results Hemoglobin/Hematocrit: Hgb 12.2 g/dL (11.2-15.7) 05/10/22 22:15 Hct 36.1 % (36.0-46.0) 05/10/22 22:15 Abnormal Lab Findings: Abnormal Labs 05/10/22 05/11/22 22:15 03:05 Uric Acid 6.7 H Magnesium 5.3 H* Alkaline Phosphatase 253 H Albumin 2.6 L
[2022-05-11] MEDS: AZITHROMYCIN 500 MG in Normal Saline 250 ML 250 MG IVPB (07:25)
[2022-05-11] MEDS: Sodium Citrate 30 ML CUP PO (07:26)
[2022-05-11] MEDS: ceFAZolin 2 GM/50 ML BAG IVPB (07:46)
[2022-05-11] MEDS: Lactated Ringers 1,000 ML 200 ML IV ×2 (07:47→20:07)
--- NOTE | 2022-05-11 08:15 | PLAC_PTH ---
PATIENT: Kianna Zuniga LOC: OBS U#:[id number] AGE/SX: 32/F ROOM: OBS.305 RE05/10/[address]: Kalina Sears CNM : 1990 BED: A DIS: 05/14/2022 SPEC #: [id number] RECD: 05/11/22 12:17 STATUS: LM REQ #: [id number] NIA: 05/11/22 08:[address]: Kalina Sears DEPT: Surgical Specimen RECD BY: Stacey Yu ENTERED: 05/11/22 12:18 SP TYPE: PLAC OTHR DR: Giuseppe Cody, SAMM Tissues: 1 - PLACENTA (3RD TRIMESTER) Procedures: GROSS AND MICRO LEVEL 5 Comments: [id number]
[2022-05-11] MEDS: Bupivacaine 0.25% Pres-Free 30 ML VIAL (08:45)
--- NOTE | 2022-05-11 09:19 | W.ANESPOSTOP ---
Postoperative Evaluation Date, Time and Location Date Performed: 05/11/22 Time Performed: 09:20 Patient Location: PACU Vital Signs Most Recent Imported Vital Signs: Most Recent Vital Signs Temp Pulse Resp BP Pulse Ox 36.5 C 79 13 120/60 98 05/11/22 09:02 05/11/22 09:02 05/11/22 09:02 05/11/22 09:02 05/11/22 09:02 Pain Score Most Recent Pain Score: Most Recent Pain Score Pain Level [Lower Abdomen] 0 05/11/22 07:00 Pain Level 0 05/11/22 09:02 Assessment Mental Status: Awake (Alert & Oriented to Patient Baseline) Airway and Respiratory Function: Patent airway with normal (patient baseline) respiratory exam Cardiovascular Function: Hemodynamically Stable Hydration Status: Adequately Hydrated Nausea & Vomiting: No Nausea or Vomiting Pain: Other (spinal not worn off. ) Peripheral Nerve Block: Patient did not receive a nerve block
--- NOTE | 2022-05-11 10:16 | W.PM.OBCSECT ---
Date of service: 05/11/22 Time of Service: 10:16 Operative Note Operative Note Delivery Method: Unscheduled STAT: No and Primary NTSV>37 Weeks: Yes DATE OF PROCEDURE: 05/11/22 PRE-OP DIAGNOSES: 41 and 1, severe pre-e, meconium, intolerance of labor Same with persistent occiput posterior PROCEDURE: Primary low-transverse section SURGEON: Lela Uribe Assisting Surgeon: Phylicia Maria Anesthesia: local and spinal Estimated blood loss (mL): 500 Pathology: other (Placenta for exam) Complications: None Patient was transported to: PACU Patient's condition: stable Indications: Intrauterine gestation at 41 weeks and 1 day, spontaneous onset of labor, severe preeclampsia warranting magnesium sulfate, meconium stained fluid, intolerance of labor Findings: Delivery of a viable female from the vertex position with nuchal cord x2. Persistent occiput posterior position Procedure Description: Patient was taken to the operating suite with an IV running where she was placed in the seated position. Her previous epidural catheter was removed and spinal anesthesia administered for ongoing pain control, and intraoperative analgesia. She was then placed on the supine position with leftward tilt. Panda catheter had been previously inserted, pneumatic compression stockings were in place, and she did receive antibiotic prophylaxis with Ancef and Zithromax. heart tones were auscultated after spinal anesthesia in the 110's. She was then prepped and draped in the usual sterile fashion with a vaginal preparation as well and a Pfannenstiel skin incision made, carried down to the underlying fascia which was nicked in the midline. The fascial incision was then extended laterally. The rectus muscles were identified and split in the midline. The peritoneum was identified tented up and entered sharply. Peritoneal incision was extended superiorly and inferiorly and the bladder blade inserted. The vesicouterine peritoneum was identified tented up and entered sharply for creation of a bladder flap. The bladder blade was then reinserted and a low transverse uterine incision was made with a scalpel in the midline and extended bluntly laterally. The vertex was deep within the pelvis and was gently elevated from the pelvis in the occiput posterior position. vertex delivered through the incision and there was evidence of a loose nuchal cord x2 which was easily reduced. Shoulders followed with ease. A three-vessel cord was noted clamped x2 and cut and the infant was handed off to the waiting pediatric group. At this point cord blood gases and cord blood sample were both obtained and the placenta was manually expressed from the uterus. The uterus was then exteriorized and cleared of all clot and debris. The uterine incision was closed using 0 Vicryl suture in a 2 layer fashion, first being running locked, second being imbricating. There was an area at the right uterine vessels that was not hemostatic and oversewn with a [id number] suture and found to be hemostatic. There is a small hematoma measuring approximately 3 cm which was stable throughout the procedure. At this point the abdomen was irrigated with copious amounts of normal saline and the uterus returned to the abdomen. The uterine incision was hemostatic. The fascial incision was then closed using 0 Vicryl suture in a running fashion. Subcutaneous tissue irrigated with copious amounts of normal saline. Subcu space closed with 3-0 Vicryl and skin edge reapproximated with 4-0 undyed Monocryl in a subcuticular fashion. Steri-Strips and a sterile dressing were placed. Upon completion of the procedure, patient was taken to the postanesthesia care unit for a brief period of monitoring to ensure blood pressure stability. She was then taken to the center for the remainder of her recovery. She had a Panda catheter in place draining concentrated though yellow urine. EBL: 500 mL Complications: None Findings: Delivery of a viable female infant with thickly meconium stained fluid and in the persistent occiput posterior position with nuchal cord x2. Normal-appearing tubes, ovaries, uterus Fluids: Crystalloid per anesthesia Pelvic pathology: Placenta for examination, cord blood sample, cord blood gases
[2022-05-11 10:27] LABS: Magnesium 5.2 mg/dL (1.8-2.4)
[2022-05-11 10:55] LABS: ALT 21 U/L (14-59); AST 27 U/L (15-37); Albumin 1.8 g/dL (3.4-5.0); Alkaline Phosphatase 194 U/L (46-116); Anion Gap 13.8 mmol/L (3-11); BUN 11 mg/dL (7-18); Bilirubin, Total 0.2 mg/dL (0.2-1.0); CO2 18.2 mmol/L (21.0-32.0); CREATININE 1.1 mg/dL (0.55-1.02); Calcium 7.7 mg/dL (8.5-10.1); Chloride 100 mmol/L (98-107); Estimated GFR 68.47 (mL/min/1.73m2); Glucose 210 mg/dL (74-106); Sodium 132 mmol/L (136-145); Total Protein 5.1 g/dL (6.4-8.2)
[2022-05-11] MEDS: Ketorolac 30 MG/ML VIAL IVP ×2 (11:10→17:43)
[2022-05-11] MEDS: NALBUPHINE 5 MG in Normal Saline 50 ML 100 MG IVPB (11:20)
[2022-05-11] MEDS: Normal Saline Flush 10 ML SYR IVP (17:44)
[2022-05-11 20:27] LABS: Magnesium 4.6 mg/dL (1.8-2.4)
[2022-05-12] MEDS: Ketorolac 30 MG/ML VIAL IVP (00:08)
[2022-05-12 03:23] VITALS: BP 115/68; PULSE 71; RESP 18; TEMP 36.9
[2022-05-12 07:17] LABS: Abs Immature Grans 0.05 10^3/uL (0.0-0.06); Absolute Basophil Count 0.03 10^3/uL (0.0-0.2); Absolute Eosinophil Count 0.17 10^3/uL (0.0-0.7); Absolute Lymphocyte Count 1.21 10^3/uL (1.2-3.4); Basophils % 0.3; Eosinophils % 1.5; HCT 28.2 % (36.0-46.0); HGB 9.8 g/dL (11.2-15.7); Immature Grans % 0.4; Lymphocytes % 10.6; MCHC 34.8 % (32.0-36.0); MCV 81 fL (80-95); MPV 10.8 fL (8.0-11.0); Monocytes % 8.6; Neutrophils % 78.6; Platelet Count 178 10^3/uL (130-400); RDW 13.2 % (11.7-14.6); WBC 11.46 10^3/uL (4.4-10.8)
[2022-05-12 07:22] LABS: Absolute Monocyte Count 0.99 10^3/uL (0.1-0.8); Absolute Neutrophil Count 9.01 10^3/uL (1.2-6.7)
[2022-05-12 07:40] LABS: Magnesium 5.6 mg/dL (1.8-2.4)
[2022-05-12 08:30] VITALS: BP 119/85; PULSE 78; RESP 12; TEMP 37.1
[2022-05-12] MEDS: Acetaminophen 325 MG TAB 650 MG PO ×3 (09:12→21:25)
[2022-05-12] MEDS: Ibuprofen 600 MG TAB PO ×3 (09:12→21:26)
[2022-05-12 11:01] LABS: ALT 17 U/L (14-59); AST 25 U/L (15-37); Albumin 1.8 g/dL (3.4-5.0); Alkaline Phosphatase 169 U/L (46-116); BUN 12 mg/dL (7-18); Bilirubin, Total 0.2 mg/dL (0.2-1.0); CREATININE 1.1 mg/dL (0.55-1.02); Calcium 7.8 mg/dL (8.5-10.1); Chloride 101 mmol/L (98-107); Estimated GFR 68.47 (mL/min/1.73m2); Glucose 63 mg/dL (74-106); Sodium 131 mmol/L (136-145); Total Protein 5.4 g/dL (6.4-8.2)
[2022-05-12 12:15] VITALS: BP 128/83; PULSE 78; RESP 14; TEMP 37.1
[2022-05-12 16:00] VITALS: BP 124/82; PULSE 73; RESP 15; O2SAT 97
[2022-05-12] MEDS: Docusate Sodium 100 MG CAP PO (16:28)
--- NOTE | 2022-05-12 17:47 | W.PM.OBPNV1 ---
Date of service: 05/12/22 Time of Service: 17:48 Assessment and Plan Assessment and plan (1) Pre-eclampsia affecting childbirth: Status: Acute Assessment and plan: Mag turned off this am 24hr s/p delivery and she is doing well. Normal BPs. Good diuresis. (2) Status post section routine follow-up: Status: Acute Assessment and plan: POD#1 s/p PCS, doing well. No significant concerns. Routine care. Subjective Subjective Interval history: Pt is feeling much better since mag was turned off this am and she got to shower. OOB without assistance. Tolerating PO w/out nausea. +small BM. Minimal lochia. baby status: Doing well, Rooming in and Strong Bonding Observed [place] feeding status: Exclusively breast feeding Exam Physical Exam Vital signs: Temp Pulse Resp BP Pulse Ox 98.8 F 73 15 124/82 97 05/12/22 12:15 05/12/22 16:00 05/12/22 16:00 05/12/22 16:00 05/12/22 16:00 Vital Signs Reviewed: Yes Constitutional Constitutional: no acute distress and cooperative Detailed HEENT Exam Head: Present normocephalic and atraumatic Respiratory Exam Respiratory Exam: Normal Abdominal Exam Abdomen: Tender (mildly) Comments: Incision clean, dry, intact Fundal Exam Fundus: Below Umbilicus and Firm Extremities Exam Extremity Exam: negative Edema Detailed Neurological Exam Neurological: Present alert, oriented X3 and CN II-XII intact Results Hemoglobin/Hematocrit: Hgb 9.8 g/dL (11.2-15.7) L D 05/12/22 06:10 Hct 28.2 % (36.0-46.0) L 05/12/22 06:10 Abnormal Lab Findings: Abnormal Labs 05/10/22 05/11/22 05/11/22 22:15 03:05 09:56 WBC RBC Hgb Hct Absolute Neutrophils Absolute Monocytes Sodium Carbon Dioxide Anion Gap Creatinine Glucose Uric Acid 6.7 H Calcium Magnesium 5.3 H* 5.2 H* Alkaline Phosphatase 253 H Total Protein Albumin 2.6 L 05/11/22 05/11/22 05/12/22 09:56 19:45 06:10 WBC 11.46 H RBC 3.50 L Hgb 9.8 L D Hct 28.2 L Absolute Neutrophils 9.01 H Absolute Monocytes 0.99 H Sodium 132 L Carbon Dioxide 18.2 L Anion Gap 13.8 H Creatinine 1.1 H Glucose 210 H Uric Acid Calcium 7.7 L Magnesium 4.6 H* Alkaline Phosphatase 194 H Total Protein 5.1 L Albumin 1.8 L 05/12/22 05/12/22 06:10 06:10 WBC RBC Hgb Hct Absolute Neutrophils Absolute Monocytes Sodium 131 L Carbon Dioxide Anion Gap Creatinine 1.1 H Glucose 63 L Uric Acid Calcium 7.8 L Magnesium 5.6 H* D Alkaline Phosphatase 169 H Total Protein 5.4 L Albumin 1.8 L
[2022-05-12 20:30] VITALS: BP 121/81; PULSE 78; RESP 18; TEMP 36.9
[2022-05-13 07:30] VITALS: BP 155/97; PULSE 76; RESP 17; TEMP 36.8; O2SAT 99
[2022-05-13] MEDS: Acetaminophen 325 MG TAB 650 MG PO ×3 (08:15→22:07)
[2022-05-13] MEDS: Ibuprofen 600 MG TAB PO ×3 (08:15→22:07)
--- NOTE | 2022-05-13 10:47 | OBPPV_ITS ---
Date of service: 05/13/22 Time of Service: 10:47 Assessment and Plan Assessment and plan (1) Status post section routine follow-up: Status: Acute Assessment and plan: Will plan to start labetalol due to elevated BPs today. Countinue routine care. Recheck labs tomorrow am prior to d/c. Expect d/c tomorrow if no other complications arise. Subjective Subjective Interval history: Pt feels tired today but ambulation without difficulty. Sola reg diet. No n/v. +flatus. Moderate lochia. Pain controlled on PO tylenol/motrin. Breast- feeding going ok - baby seems to feed but not making her very sore. Baby seems to be gassy. Exam Physical Exam Vital signs: Temp Pulse Resp BP Pulse Ox 98.2 F 76 17 155/97 H 99 05/13/22 07:30 05/13/22 07:30 05/13/22 07:30 05/13/22 07:30 05/13/22 07:30 Vital Signs Reviewed: Yes Constitutional Constitutional: no acute distress and cooperative Detailed HEENT Exam Head: Present normocephalic and atraumatic Respiratory Exam Respiratory Exam: Normal Abdominal Exam Abdomen: Tender (mildly) Comments: Incision clean, dry, intact Fundal Exam Fundus: Below Umbilicus and Firm Extremities Exam Extremity Exam: Edema (trace) Detailed Neurological Exam Neurological: Present alert, oriented X3 and CN II-XII intact Results Hemoglobin/Hematocrit: Hgb 9.8 g/dL (11.2-15.7) L D 05/12/22 06:10 Hct 28.2 % (36.0-46.0) L 05/12/22 06:10 Abnormal Lab Findings: Abnormal Labs 05/10/22 05/11/22 05/11/22 22:15 03:05 09:56 WBC RBC Hgb Hct Absolute Neutrophils Absolute Monocytes Sodium Carbon Dioxide Anion Gap Creatinine Glucose Uric Acid 6.7 H Calcium Magnesium 5.3 H* 5.2 H* Alkaline Phosphatase 253 H Total Protein Albumin 2.6 L 05/11/22 05/11/22 05/12/22 09:56 19:45 06:10 WBC 11.46 H RBC 3.50 L Hgb 9.8 L D Hct 28.2 L Absolute Neutrophils 9.01 H Absolute Monocytes 0.99 H Sodium 132 L Carbon Dioxide 18.2 L Anion Gap 13.8 H Creatinine 1.1 H Glucose 210 H Uric Acid Calcium 7.7 L Magnesium 4.6 H* Alkaline Phosphatase 194 H Total Protein 5.1 L Albumin 1.8 L 05/12/22 05/12/22 06:10 06:10 WBC RBC Hgb Hct Absolute Neutrophils Absolute Monocytes Sodium 131 L Carbon Dioxide Anion Gap Creatinine 1.1 H Glucose 63 L Uric Acid Calcium 7.8 L Magnesium 5.6 H* D Alkaline Phosphatase 169 H Total Protein 5.4 L Albumin 1.8 L
[2022-05-13 16:05] VITALS: BP 153/105; PULSE 77; RESP 16; TEMP 37.2; O2SAT 100
[2022-05-13] MEDS: Labetalol 100 MG TAB 200 MG PO (17:33)
[2022-05-13 20:00] VITALS: BP 122/82; PULSE 73; RESP 18; TEMP 36.9
[2022-05-13 20:30] VITALS: BP 132/85; PULSE 79; RESP 18; TEMP 37.1
[2022-05-13 22:00] VITALS: BP 127/85; PULSE 78; RESP 18
[2022-05-13] MEDS: Labetalol 100 MG TAB PO (22:07)
[2022-05-14] VITALS: BP 134/88; PULSE 84; RESP 18; TEMP 37.1
[2022-05-14] MEDS: Acetaminophen 325 MG TAB 650 MG PO ×2 (04:32→15:13)
[2022-05-14] MEDS: Ibuprofen 600 MG TAB PO ×2 (04:33→15:13)
[2022-05-14 04:35] VITALS: BP 122/84; PULSE 73; RESP 18; TEMP 37.1
[2022-05-14 06:38] LABS: Abs Immature Grans 0.05 10^3/uL (0.0-0.06); Absolute Basophil Count 0.02 10^3/uL (0.0-0.2); Absolute Eosinophil Count 0.24 10^3/uL (0.0-0.7); Absolute Monocyte Count 0.76 10^3/uL (0.1-0.8); Absolute Neutrophil Count 8.31 10^3/uL (1.2-6.7); Basophils % 0.2; Eosinophils % 2.3; HCT 27.7 % (36.0-46.0); HGB 9.5 g/dL (11.2-15.7); Immature Grans % 0.5; Lymphocytes % 11.3; MCHC 34.3 % (32.0-36.0); MCV 82 fL (80-95); MPV 10.4 fL (8.0-11.0); Monocytes % 7.2; Neutrophils % 78.5; Platelet Count 191 10^3/uL (130-400); RBC 3.39 10^6/uL (3.93-5.22); RDW 13.2 % (11.7-14.6); RDW-SD 39.4 fL; WBC 10.58 10^3/uL (4.4-10.8)
[2022-05-14 07:07] LABS: ALT 33 U/L (14-59); AST 36 U/L (15-37); Albumin 2.1 g/dL (3.4-5.0); Alkaline Phosphatase 142 U/L (46-116); Anion Gap 7.1 mmol/L (3-11); BUN 13 mg/dL (7-18); Bilirubin, Total 0.2 mg/dL (0.2-1.0); CO2 27.9 mmol/L (21.0-32.0); Calcium 8.4 mg/dL (8.5-10.1); Chloride 103 mmol/L (98-107); Estimated GFR 76.76 (mL/min/1.73m2); Glucose 66 mg/dL (74-106); Potassium 3.9 mmol/L (3.5-5.1); Sodium 138 mmol/L (136-145); Total Protein 6.1 g/dL (6.4-8.2)
[2022-05-14 09:25] VITALS: BP 156/104; PULSE 74; RESP 16; TEMP 36.7; O2SAT 100
[2022-05-14] MEDS: Labetalol 100 MG TAB PO (09:31)
--- NOTE | 2022-05-14 11:32 | W.PM.OBPNV1 ---
Date of service: 05/14/22 Time of Service: 11:32 Assessment and Plan Assessment and plan (1) Status post section routine follow-up: Status: Acute Assessment and plan: POD#3 s/p PCS for intolerance of labor. Came in with severe PEC and was placed on Magnesium for seizure ppx. BPs have been mildly elevated since yesterday so she will go home on 200mg Labetalol BID. Subjective Subjective Interval history: Pt is doing well. Baby has gained some weight since they started formula last night. Exam Physical Exam Vital signs: Temp Pulse Resp BP Pulse Ox 98.1 F 74 16 156/104 H 100 05/14/22 09:25 05/14/22 09:25 05/14/22 09:25 05/14/22 09:25 05/14/22 09:25 Vital Signs Reviewed: Yes Constitutional Constitutional: no acute distress and cooperative Detailed HEENT Exam Head: Present normocephalic and atraumatic Respiratory Exam Respiratory Exam: Normal Abdominal Exam Abdomen: Tender (mildly) Comments: Incision clean, dry, intact Fundal Exam Fundus: Below Umbilicus and Firm Extremities Exam Extremity Exam: negative Edema Detailed Neurological Exam Neurological: Present alert, oriented X3 and CN II-XII intact Results Hemoglobin/Hematocrit: Hgb 9.5 g/dL (11.2-15.7) L 05/14/22 06:15 Hct 27.7 % (36.0-46.0) L 05/14/22 06:15 Abnormal Lab Findings: Abnormal Labs 05/10/22 05/11/22 05/11/22 22:15 03:05 09:56 WBC RBC Hgb Hct Absolute Neutrophils Absolute Monocytes Sodium Carbon Dioxide Anion Gap Creatinine Glucose Uric Acid 6.7 H Calcium Magnesium 5.3 H* 5.2 H* Alkaline Phosphatase 253 H Total Protein Albumin 2.6 L 05/11/22 05/11/22 05/12/22 09:56 19:45 06:10 WBC 11.46 H RBC 3.50 L Hgb 9.8 L D Hct 28.2 L Absolute Neutrophils 9.01 H Absolute Monocytes 0.99 H Sodium 132 L Carbon Dioxide 18.2 L Anion Gap 13.8 H Creatinine 1.1 H Glucose 210 H Uric Acid Calcium 7.7 L Magnesium 4.6 H* Alkaline Phosphatase 194 H Total Protein 5.1 L Albumin 1.8 L 05/12/22 05/12/22 05/14/22 06:10 06:10 06:15 WBC RBC Hgb Hct Absolute Neutrophils Absolute Monocytes Sodium 131 L Carbon Dioxide Anion Gap Creatinine 1.1 H Glucose 63 L 66 L Uric Acid Calcium 7.8 L 8.4 L Magnesium 5.6 H* D Alkaline Phosphatase 169 H 142 H Total Protein 5.4 L 6.1 L Albumin 1.8 L 2.1 L 05/14/22 06:15 WBC RBC 3.39 L Hgb 9.5 L Hct 27.7 L Absolute Neutrophils 8.31 H Absolute Monocytes Sodium Carbon Dioxide Anion Gap Creatinine Glucose Uric Acid Calcium Magnesium Alkaline Phosphatase Total Protein Albumin
--- NOTE | 2022-05-14 11:37 | W.PM.OBDISCH ---
Date of service: 05/14/22 DS: Diagnosis Discharge Diagnosis (1) Status post section routine follow-up: Status: Acute Discharge Plan Disposition Patient Disposition: HOME Condition: Good Discharge Details Reason For Visit: Term Labor Admit Date/Time: 05/10/22 21:40 Admit Provider: Kalina Sears Attending Provider: Kalina Sears Primary Care Provider: Giuseppe Cody Hospital Course Hospital Course: Pt admitted in labor and found to have severe range BPs and severe PEC. She was treated with with IV labetalol and started on Magnesium for seizure prophylaxis. She progressed to 6cm but had thick meconium and intolerance of labor so she underwent a PCS. Magnesium was continued for 24hrs pp. Her BPs were normal for the next 24hrs but then elevated on POD2 so she was started on Labetalol. BPs remained stable and she was asymptomatic. Her creatinine had increased to 1.1 and dropped to 1.0 at time of discharge. She had excellent diuresis. Home Meds and New Rx's Prescriptions: New acetaminophen 325 mg Tablet 650 mg PO Q4H PRN PRNQty: 0 0RF ibuprofen 600 mg Tablet 600 mg PO Q6H PRN PRNQty: 60 0RF labetalol 100 mg Tablet 200 mg PO BID Qty: 120 0RF Continued prenat.vits,luke,raq-lsgv-xdtqh Tablet 1 tab PO DAILY Discontinued aspirin [Adult Low Dose Aspirin] 81 mg tablet,delayed release (DR/EC) 81 mg PO DAILY Rx Instructions: taking 1 then 2 alternating days diphenhydramine HCl [Benadryl] 25 mg capsule 25 mg PO QHS PRN Discharge Instructions Activity:: No lifting >20lbs Equipment/Supplies:: No Equipment Needed Diet:: As Tolerated Discharge Orders Discharge Orders: Discharge Order (Routine); Ordered 05/14/22 Ordered By: Phylicia Maria OB:DS Summary Contraception Discussed Contraception Discussed: Yes Contraceptive Plan: Foam/Condoms and Vasectomy, Infant Gender-Baby A: Female weight: 7 lb 8.284 oz Status at Discharge Functional status at discharge: independent ambulation Overall status at discharge: patient is back to baseline Mental Status: mental status grossly normal Speech and Movement: speech and movement normal Mood: congruent mood Affect: normal affect Exam Physical Exam Vital signs: Temp Pulse Resp BP Pulse Ox 98.1 F 74 16 156/104 H 100 05/14/22 09:25 05/14/22 09:25 05/14/22 09:25 05/14/22 09:25 05/14/22 09:25 PFS All Active Problems (Updated 05/11/22 @ 07:06 by Lela Uribe DO) Status post section routine follow-up (Acute) intolerance to labor, delivered, current hospitalization (Acute) Thick meconium stained amniotic fluid (Acute) Pre-eclampsia affecting childbirth (Acute) Group B Streptococcus carrier state affecting (Acute) 41 weeks gestation of (Acute) Uterine contractions (Acute) (sickle cell trait) (Acute) Clicking tinnitus of left ear (Acute) (Acute) Medical History (Updated 05/11/22 @ 07:06 by Lela Uribe DO) Anemia Dizzy spells Elevated glucose level Gestational hypertension affecting first Family History Mother Hypertension Breast cancer diagnosed around age 57, had radiation and lumpectomy, in recurrence Father No problems noted. Sister No problems noted. Brother No problems noted. Maternal Grandmother No problems noted. Paternal Grandmother Hypertension Social History Smoking/Tobacco Use Status: Never Second Hand Exposure: Yes Smoking risk assessment performed?: Yes Alcohol Intake: current Alcohol Intake frequency: a few times a month Alcohol type: wine Drug use: Never Substance use type: does not use Caregiver/Support person: No Household members: significant other Housing: house Pets and animals: Yes Pets and animals: dog(s) Sexually active: Yes Do you think of yourself as: straight/heterosexual Current gender identity: female What is your relationship status?: living with partner How often do you talk on the phone with friends or family?: three or more times per week How often do you get together with friends or relatives?: once per week Do you belong to any clubs or organized social groups?: no Panel score (0-1 are the most socially isolated patients): 2 What type of physical activity do you participate in: yoga Duration: < 15 minutes/day Frequency: 1-2 times per week Macrina/Shinto: No preference Seatbelt use: always Drive intox or ride w/intox special events driver: No Do you feel safe at home: Yes Do you feel safe in your relationship?: Yes History History 1 Para 0 Hx # Term Pregnancies 0 Multiple births 0 Hx # Pregnancies 0 Ectopic pregnancies 0 AB induced 0 Hx Number of Living Children 0 AB spontaneous 0 DS: Data Vitals/I&O Vitals and I&O: Vital Signs Temperature 98.1 F 05/14/22 09:25 Pulse 74 05/14/22 09:25 Pulse Rhythm Regular 05/14/22 09:25 Respiratory Rate 16 05/14/22 09:25 Respiratory Depth Normal 05/11/22 12:33 Blood Pressure 156/104 H 05/14/22 09:25 Blood Pressure Mean 121 05/14/22 09:25 Pulse Oximetry 100 05/14/22 09:25 Oxygen Delivery Method Room Air 05/11/22 09:35 Pain Level 1 05/14/22 09:25 Comment 05/14/22 09:25 Intake & Output 05/13/22 05/13/22 05/14/22 11:59 23:59 11:59 Other: Urine Color Pale Data Completed and Pending Labs on day of discharge: Labs from last 24 hours 05/14/22 05/14/22 06:15 06:15 WBC 10.58 RBC 3.39 L Hgb 9.5 L Hct 27.7 L MCV 82 MCH 28.0 MCHC 34.3 RDW 13.2 Plt Count 191 MPV 10.4 Immature Gran % 0.5 Neutrophils % 78.5 Lymphocytes % 11.3 Monocytes % 7.2 Eosinophils % 2.3 Basophils % 0.2 Nucleated RBC % 0.0 Absolute Neutrophils 8.31 H Absolute Lymphocytes 1.20 Absolute Monocytes 0.76 Absolute Eosinophils 0.24 Absolute Basophils 0.02 Sodium 138 Potassium 3.9 Chloride 103 Carbon Dioxide 27.9 Anion Gap 7.1 BUN 13 Creatinine 1.0 Est GFR (CKD-EPI 2020) 76.76 Glucose 66 L Calcium 8.4 L Total Bilirubin 0.2 AST 36 ALT 33 Alkaline Phosphatase 142 H Total Protein 6.1 L Albumin 2.1 L
[2022-05-14 15:00] VITALS: BP 134/76; PULSE 84; RESP 16; TEMP 37.2; O2SAT 100
== END 2022-05-14 15:45 | disposition home or self-care (01) | DRG 788 ==
PROVIDERS: Obstetrics & Gynecology; Admitting Provider Advanced Practice Midwife; PCP Nurse Practitioner Family; Visit Provider Advanced Practice Midwife
PROC: 10D00Z1 Extraction of Products of Conception, Low, Open Approach (ICD-10-PCS; CPT 59514; principal; 2022-05-11 07:45)
DX: O48.0 Post-term pregnancy (principal); O99.824 Streptococcus B carrier state complicating childbirth; O14.14 Severe pre-eclampsia complicating childbirth; D57.3 Sickle-cell trait; O99.02 Anemia complicating childbirth; Z3A.41 41 weeks gestation of pregnancy; Z37.0 Single live birth; O76 Abnormality in fetal heart rate and rhythm complicating labor and delivery; O77.0 Labor and delivery complicated by meconium in amniotic fluid
CPT/HCPCS: 59514; 36415; 80053; 85027; 86850; 86900; 86901; 87635; 82565; 83615; 83735; 84156; 84550; 85025; 88307; J0456; J0690; J1885; J2405; J2540; J3010; J3475; J3490

== ENCOUNTER 2024-05-06 01:23 | Outpatient (CLI) | payer SELFPAY ==
--- NOTE | 2024-05-06 07:15 | DI.MAMMO_ITS ---
Exam(s) US BREAST RT LIMITED MG MAMMO DIAGNOSTIC BI EXAM: MAMMO DIAGNOSTIC BI and U/S breast RT limited CLINICAL HISTORY: rt breast Pain for 2 wks, Cannot tolerate palpation,n64.4. TECHNIQUE: Craniocaudal and mediolateral oblique Full Field Digital Mammography views with Computer Aided Diagnosis followed by Tomosynthesis and right breast ultrasound. COMPARISON: This is a baseline examination. FINDINGS: Mammography/Tomosynthesis: Masses/Architectural Distortion: None seen. Microcalcifictions: No suspicious pleomorphic-type are seen. Skin Thickening/Nipple Retraction: None. Limited right breast US: Echotexture: Normal appearance of the glandular tissue. Shadowing: No suspicious foci. Cyst: None. Solid lesions: None seen. Ductal dilation: None. IMPRESSION: 1. No evidence of malignancy is noted. 2. Unless there is more urgent need, follow-up screening mammography is recommended, as per [employer] guidelines. 3. The findings were discussed with the patient on the date of the examination. BI-RADS Category 1 - Negative Breast Density - Category C - Heterogeneously dense Breast density Category C or D implies that the patient has dense breast tissue. Dense breast tissue can make it harder to find cancer on a mammogram. Dense breast tissue is also associated with an incr eased risk of breast cancer. This information about the result of the mammogram report was provided to the patient to raise their awareness. Use this report when you speak with the patient about their risks for breast cancer, which includes their family history. At that time, you may recommend additional screening tests (Ultrasoun d or MRI) as these tests may add significant information. A negative radiographic report should not delay biopsy if a dominant or clinically suspicious mass is present. Up to ten percent of cancers are not identified on mammography. A negative report may reinforce clinical impression. Adenosis and dense breasts may obscure an underlying neoplasm. False positive reports average 6 to 10%. Patient will receive a letter notifying them of these results.
== END 2024-05-06 01:43 ==
PROVIDERS: PCP Nurse Practitioner Family; Visit Provider Nurse Practitioner Family
DX: N64.4 Mastodynia (principal); Z12.31 Encounter for screening mammogram for malignant neoplasm of breast
CPT/HCPCS: 76642; 77062; 77066; G0279

== ENCOUNTER 2025-02-06 13:32 | Outpatient (CLI) | payer OTHER, SELFPAY ==
[2025-02-06 12:23] LABS: Hemoglobin A1C 5.4 % (<5.7)
[2025-02-06 12:26] LABS: Calculated LDL 86 mg/dL (<100); Cholesterol 158 mg/dL (<200); HDL Cholesterol 52 mg/dL (>or=50); Triglyceride 101 mg/dL (<150)
[2025-02-06 13:08] LABS: Lab Add On Test DONE
[2025-02-06 13:24] LABS: HCT 36.3 % (36.0-46.0); HGB 12.6 g/dL (11.2-15.7); MCH 27.3 pg (27.0-33.0); MCHC 34.7 % (32.0-36.0); MCV 79 fL (80-95); MPV 10.7 fL (8.0-11.0); Platelet Count 256 10^3/uL (130-400); RBC 4.62 10^6/uL (3.93-5.22); RDW 12.5 % (11.7-14.6); WBC 6.83 10^3/uL (4.4-10.8)
[2025-02-06 13:44] LABS: ALT 28 U/L (14-59); AST 19 U/L (15-37); Albumin 3.6 g/dL (3.4-5.0); Alkaline Phosphatase 60 U/L (46-116); Anion Gap 9.4 mmol/L (3-11); BUN 14 mg/dL (7-18); Bilirubin, Total 0.3 mg/dL (0.2-1.0); CO2 26.6 mmol/L (21.0-32.0); CREATININE 0.9 mg/dL (0.55-1.02); Calcium 9.2 mg/dL (8.5-10.1); Chloride 103 mmol/L (98-107); Estimated GFR 86.03 (mL/min/1.73m2); FREE T4 1.14 ng/dL (0.76-1.46); Glucose 106 mg/dL (74-106); Potassium 3.6 mmol/L (3.5-5.1); Sodium 139 mmol/L (136-145); TSH 1.72 uIU/mL (0.36-3.74); Total Protein 7.8 g/dL (6.4-8.2)
== END 2025-02-06 13:33 | disposition home or self-care (01) ==
LOC: LBO 13:33
PROVIDERS: PCP Nurse Practitioner Family; Visit Provider Nurse Practitioner Family
DX: Z13.220 Encounter for screening for lipoid disorders (principal); Z13.1 Encounter for screening for diabetes mellitus; I10 Essential (primary) hypertension
CPT/HCPCS: 36415; 80053; 80061; 85027; 83036; 84439; 84443

== ENCOUNTER 2025-07-10 15:14 | Outpatient (REF) | payer OTHER, SELFPAY ==
--- NOTE | 2025-07-10 15:00 | PAPFT_PTH ---
PATIENT: Kianna Zuniga LOC: [facility] U#:[id number] AGE/SX: 35/F ROOM: RE07/10/[address]: Kalina Sears CNM : 1990 BED: DIS: 07/10/2025 SPEC #: [id number] RECD: 07/10/25 17:23 STATUS: LM GIORDANO #: [id number] NIA: 07/10/25 15:[address]: Kalina Sears DEPT: [facility] Cytology RECD BY: Stacey Yu ENTERED: 07/10/25 17:23 SP TYPE: PAPFT OT DR: Giuseppe Cody, SAMM Tissues: 1 - CX/ENDOCX FOR PAP SMEARS Procedures: PAP THIN PREP/[facility] Screening HPV DNA PROBE Comments: [id number] (HPV 16 & 18/45)
== END 2025-07-10 15:15 | disposition home or self-care (01) ==
LOC: LBN 15:14
PROVIDERS: PCP Nurse Practitioner Family; Visit Provider Advanced Practice Midwife
DX: Z12.4 Encounter for screening for malignant neoplasm of cervix
CPT/HCPCS: 88142; 87086; 87624